=== PATIENT | female | born 1945 | race Caucasian/White ===

== ENCOUNTER 2024-02-05 11:46 | Inpatient (IN) | payer MEDICARE, OTHER, SELFPAY ==
[2024-02-05 09:24] VITALS: BMI 42.9
--- NOTE | 2024-02-05 09:31 | ED.GENMED ---
History of Present Illness
General
Chief Complaint: Breathing Problem
Time Seen by Provider: 02/05/24 09:22
History of Present Illness
History of Present Illness:
79-year-old female with history of COPD not on chronic oxygen presents to the emergency department for evaluation of shortness of breath developing on Monday. She notes symptoms seem to be worse when she goes to lie backward. She was started on
prednisone 20 mg by her medical research associate at the onset of symptoms and felt better yesterday however symptoms abruptly worsened again today. She denies any chest pain but does report some tightness to the right lower chest. No associated fevers,
chills, or night sweats. She notes that she recently traveled to [place] for a wedding, felt as though allergies were affecting her, her is also reporting a cough. She denies any leg swelling or calf cramping. She is not on anticoagulants.
Past History
Past History
ED Past Medical History: Hypercholesterolemia and Other (RBBB)
ED Past Surgical History: None
Social History
Tobacco: Non-smoker
Personal:
Living: with family
Review of Systems
Review of Systems
Allergies reviewed?: Yes
All Other Systems: ROS reviewed and negative except as documented in HPI and ROS
Phy Exam
Physical Exam
Physical Exam:
GEN: Well appearing, tachypneic, able to speak in full sentences
Eyes: PERRLA, EOMs intact, no scleral icterus
HENT: NCAT, oral mucosa moist, no JVD, no cervical adenopathy.
Lungs: Tachypneic with mild conversational dyspnea, right base crackles heard, no wheezes
Cardiac: Tachycardic, regular, no murmur
Abdomen: S, NT, ND, NABS, no masses or hepatosplenomegaly
Neuro: AO x 3
MSK: No gross deformity or ecchymosis. No edema. No digital clubbing
Skin: No rashes, petechiae. Normal color, no pallor or jaundice.
Psych: Calm, cooperative, proper hygiene
Scores
Heart Failure Risk
Heart Failure Risk Score: Not Applicable
Course
Orders/Labs/Results
Orders:
Orders
02/05/24 09:23
Electrocardiogram (*1) Urgent
Reason for Study: Shortness of Breath
EKG- Treatment ONCE
02/05/24 09:30
CR Chest Portable - 1 View Urgent
Comment:
Reason For Exam: SOB
Reason Study Needs to be Portable: Other
02/05/24 09:48
COVID-19 Antigen Urgent
Source: Nasal Swab
Complete Blood Count/With Diff Urgent
Comprehensive Metabolic Panel Urgent
D-Dimer Urgent
NT-proBNP Urgent
Troponin I Urgent
Influenza A+B Rapid Molecular Urgent
BHARAT Source: Nasal Swab
Specimen Description:
02/05/24 10:32
Azithromycin 500 mg/250 ml [Zithromax Infusion] 500 mg in 250 ml IV NOW
CefTRIAXone [Rocephin] 1,000 mg IV NOW STA
MethylPREDNISolone PF [Solu-Medrol Pf] 40 mg IV NOW STA
02/05/24 11:36
Admit/Transfer Patient As Directed
Co-Sign Provider:
Level of Care: Inpatient admission
Assign to:: Medical/Surgical
Physician / Group: hospitalist-Christina
Diagnosis: COPD/pna
Reason for Hospitalization: IV abx, IV steroids, pulm, echo
Expected length of stay greater than two midnights?: Yes
ELOS- Estimated Length of Stay in days: 4
I certify the patient meets the requirements for IP care: Yes
02/05/24 11:38
Code Status As Directed
Resuscitation Status: Full Code
Abnormal Lab Results
02/05/24
09:48
WBC 12.1 H 10^3/uL
(4.8-10.8)
MCHC 32.1 L g/dL
(33.0-37.0)
RDW 15.8 H %
(11.5-14.5)
Abs Immat Gran (auto) 0.1 H 10^3/uL
(0-0.05)
Absolute Neuts (auto) 6.7 H 10^3/uL
(1.4-6.5)
Absolute Lymphs (auto) 3.9 H 10^3/uL
(1.2-3.4)
Absolute Monos (auto) 1.3 H 10^3/uL
(0.1-0.6)
Monocytes % 10.9 H %
(1.7-9.3)
D-Dimer 0.51 H ug/mlFEU
(0.00-0.50)
Glucose 102 H mg/dl
(70-99)
02/05/24 09:48
02/05/24 09:48
Vital Signs
Initial and Last Documented VS:
Initial Vital Signs
Temp Pulse Resp Pulse Ox
97.3 F 111 24 95
02/05/24 09:25 02/05/24 09:25 02/05/24 09:25 02/05/24 09:25
Last Documented Vital Signs
Temp Pulse Resp Pulse Ox
97.3 F 111 24 95
02/05/24 09:25 02/05/24 09:25 02/05/24 09:25 02/05/24 09:42
MDM/Problems Addressed
MDM/Problems Addressed:
Patient has continued increased work of breathing and no wheezing to suggest this is entirely a COPD exacerbation. She has noted to have bilateral lateral basilar infiltrates, given her impaired lung function with COPD and borderline hypoxemia I
feel it is appropriate to admit this patient to the hospital for IV antibiotics and further management. Her D-dimer needs age-adjusted cut off thus no CT scan is obtained. Will admit to the hospitalist service, IV ceftriaxone and azithromycin
started
Comment
Comment:
EKG independently interpreted by me shows a sinus tachycardia at a rate of 105 with an incomplete left bundle branch block, LVH changes noted, no overt ST changes concerning for ischemia
*Critical Care Note
Total Time (30-74mins, 75-104mins- exclusive of procedures): Not Applicable
ED Attending Note
-
Portions of this chart may have been created with voice recognition software.� Occasional wrong word or��sound alike� substitutions may have occurred due to the inherent limitations of voice recognition software.
Discharge Plan
Departure
Patient Disposition: Admit
Date of Disposition: 02/05/24
Time of Disposition: 10:33
Presentation/result/management discussed w/ accepting MD/DO: Hospitalist
Discharge Problem:
Right lower lobe pneumonia
Interventions
Interventions:
*Risk Screen - Suicide Last Done: 02/05/24 09:25
*General Assessment Last Done: 02/05/24 09:25
*Neglect/Abuse Screening Last Done: 02/05/24 09:25
ED- Fall Risk Assessment Last Done: 02/05/24 11:49
*ED COVID-19 Vaccine History Last Done: 02/05/24 09:25
ED- Cardiac Assessment Last Done: 02/05/24 09:42
ED- Pulmonary Assessment Last Done: 02/05/24 09:42
[2024-02-05 09:59] LABS: % Basophils 0.3 % (0-2); % Eosinophils 0.7 % (0-6); % Immature Granulocytes 0.5 % (0-0.5); % Lymphocytes 32.4 % (20.5-51.1); % Monocytes 10.9 % (1.7-9.3); % Neutrophils 55.2 % (42.2-75.2); Absolute Eosinophils 0.1 10^3/uL (0-0.7); Absolute Immature Granulocytes 0.1 10^3/uL (0-0.05); Absolute Lymphocytes 3.9 10^3/uL (1.2-3.4); Absolute Monocytes 1.3 10^3/uL (0.1-0.6); Absolute Neutrophils 6.7 10^3/uL (1.4-6.5); Hematocrit 44.8 % (37.0-47.0); Hemoglobin 14.4 g/dL (12.0-16.0); Mean Corp Hgb Conc. 32.1 g/dL (33.0-37.0); Mean Corpuscular Hgb 29.9 pg (27.0-31.0); Mean Corpuscular Volume 92.9 fL (81.0-99.0); Mean Platelet Volume 9.4 fL (7.4-10.4); Nucleated Red Blood Cells % 0 %; Platelet Count 261 10^3/uL (130-400); Red Blood Cell Count 4.82 10^6/uL (4.20-5.40); Red Cell Dist. Width 15.8 % (11.5-14.5); White Blood Cell Count 12.1 10^3/uL (4.8-10.8)
[2024-02-05 10:13] LABS: ALT (SGPT) 24 U/L (0-35); AST (SGOT) 24 U/L (14-36); Albumin 4.4 g/dl (3.5-5.0); Alkaline Phosphatase 104 U/L (38-126); Blood Urea Nitrogen 14 mg/dl (7-17); Calcium 9.5 mg/dl (8.4-10.2); Carbon Dioxide 30 mmol/L (22-30); Chloride 104 mmol/L (98-107); Estimated Creatinine Clearance 89 ml/min; Glucose 102 mg/dl (70-99); Potassium 3.8 mmol/L (3.5-5.1); Sodium 143 mmol/L (135-145); Total Bilirubin 0.4 mg/dl (0.2-1.3); Total Protein 7.3 g/dl (6.3-8.2); eGFR > 60.00
[2024-02-05 10:15] LABS: COVID-19 Antigen Negative (Negative)
[2024-02-05 10:17] LABS: D-Dimer 0.51 ug/mlFEU (0.00-0.50)
[2024-02-05 10:23] LABS: NT-proBNP 127 pg/ml; Troponin I < 0.012 ng/ml
[2024-02-05] MEDS: SOLU-MEDROL PF 40 MG IV (11:14)
[2024-02-05] MEDS: ZITHROMAX INFUSION 250 IV (11:15)
[2024-02-05] MEDS: ROCEPHIN 1000 MG IV (11:15)
--- NOTE | 2024-02-05 11:42 | HPS.HSE ---
Family Physician
-
Family Physician: Saleem Hillman
Chief Complaint
-
SOB, cough
History of Present Illness
Patient is a 79-year-old female with a history of chronic obstructive pulmonary disease and mild asthma along with mild to moderate aortic stenosis who had her appointment at Dr. Tian's office last week and got a good report. Later that week on
Monday evening Feb 02 2024, patient developed acute onset of cough, shortness of breath and productive yellow-green phlegm. On Monday morning she continued to be short of breath and called Dr. Priscilla cisse who is on-call. He prescribed prednisone
20 mg daily for 7 days followed by 10 mg daily for 7 days. She thought she was doing better until this morning when she got up to move around and was again short of breath. She continues to have green productive phlegm. She denied fevers or
chills. She did use her rescue inhaler without any improvement. The patient has lost 20 pounds over the last 2 years as she is trying to lose weight. She denies any heart failure history or lower extremity edema. Patient states that the
shortness of breath is worse with moving around. She is due to see her exercise instructor in February and have an echocardiogram at that time. Workup in the emergency department finds her to have possible pneumonia on chest x-ray. Patient is being admitted.
Medical History
Past Medical History
Past Medical History: Reports Other
Additional Past Medical History:
Mild to moderate aortic stenosis
Chronic obstructive pulmonary disease with mild asthma
Chronic left bundle branch block
Coronary artery disease
Hyperlipidemia
Past Surgical History: Reports Other
Additional Past Surgical History:
Bilateral total knee replacements 2013, 2016
Social History
Tobacco: Former Smoker (Quit 32 years ago)
Alcohol: Occasional
Drug: None
Personal:
Living: With Family
Family History
Family History: Not pertinent
Allergies / Home Medications
Allergies reflects when Allergies were last updated in [facility].
Home Medications with original date entered in [facility]
Allergy/Medication List:
Allergies
Allergy/AdvReac Type Severity Reaction Status Date / Time
etodolac Allergy Unknown Hives Verified 05/23/20 15:57
Home Medications
albuterol sulfate 90 mcg/actuation aerosol inhaler (ProAir HFA) 2 puff inhalation R Q6HPRN PRN SOB 02/05/24
allopurinol 300 mg tablet 300 mg PO QPM Gout 02/05/24
biotin 5 mg tablet 5 mg PO DAILY Supplement 02/05/24
budesonide 160 mcg-glycopyr 9 mcg-formot 4.8 mcg/actuation HFA inhaler (Breztri Aerosphere) 2 inh inhalation R BID Lung/Breathing Issues 02/05/24
cetirizine 10 mg tablet (Zyrtec) 10 mg PO HS Allergies 02/05/24
cholecalciferol (vitamin D3) 25 mcg (1,000 unit) tablet (Vitamin D3) 25 mcg PO DAILY Supplement 02/05/24
famotidine 20 mg tablet (Pepcid) 20 mg PO DAILYPRN PRN GERD 02/05/24
pravastatin 40 mg tablet 40 mg PO HS High Cholesterol 02/05/24
prednisone 10 mg tablet 20 mg PO DIRECTED Anti-Inflammatory 02/05/24
therapeutic multivitamin 1 tab PO DAILY Supplement 02/05/24
Review of Systems
-
History Source: Patient
A 12 point ROS was completed and negative except as noted: Yes
Constitutional: Denies Fever or Chills
EENT: Denies Sore Throat or Runny Nose
Respiratory: Reports Cough and Trouble Breathing
Cardiac: Denies Chest Pain
Abdomen/GI: Denies Abdominal Pain, Nausea, Vomiting, Diarrhea or Constipated
: Denies Dysuria
Musculoskeletal: Reports No Symptoms; Denies Edema
Skin: Reports No Symptoms
Neurological: Reports Other (Lightheaded with starting the prednisone)
Endocrine: Reports No Symptoms
Hematologic/Lymphatic: Reports No Symptoms
Psych: Reports No Symptoms
Physical Exam
Vital Signs
Vital Signs
Temp Pulse Resp Pulse Ox
97.3 F 111 24 95
02/05/24 09:25 02/05/24 09:25 02/05/24 09:25 02/05/24 09:42
Physical Exam
General: Well Developed, Well Nourished, Respiratory Distress (Mildly winded with speaking) and Obese
HEENT: NormoCephalic and Anicteric; No Oxygen
Respiratory: Decreased Breath Sounds; No Wheezes or Rhonchi
Cardiac: S1/S2, Regular Rhythm and Murmur
GI: Soft, Non Tender, Non Distended and Normal Bowel Sounds
Musculoskeletal: No Clubbing, No Cyanosis and No Edema
Skin: Warm, Dry and Other (Large amount of moles on her back)
Neuro: Awake and Alert
Psych: Calm
Laboratory Results
-
02/05/24 09:48
02/05/24 09:48
Laboratory Results
Total Bilirubin 0.4 mg/dl (0.2-1.3) 02/05/24 09:48
AST 24 U/L (14-36) 02/05/24 09:48
ALT 24 U/L (0-35) 02/05/24 09:48
Alkaline Phosphatase 104 U/L (38-126) 02/05/24 09:48
Troponin I < 0.012 ng/ml 02/05/24 09:48
Impression/Plan
-
Patient is a 79-year-old female
Acute chronic obstructive pulmonary disease exacerbation likely--suspect due to mild/early pneumonia versus allergy triggers--patient did not improve on low-dose oral prednisone--ADMIT-consult pulmonary--continue Rocephin and oral
Zithromax--continue IV steroids and nebulizer--check echocardiogram for completeness
Mild to moderate aortic stenosis--patient due to see Dr. Oh in February--will check echo now
Hyperlipidemia--continue pravastatin
Gout--continue allopurinol
Allergies--continue Zyrtec
Chronic left bundle branch block
DVT prophylaxis
CODE STATUS--full code
[2024-02-05 13:20] VITALS: BP 149/93
[2024-02-05 13:39] VITALS: BP 177/86; BMI 42.0
--- NOTE | 2024-02-05 13:50 | CON.PUL ---
Consultation
Consultation Request
Date/Time Consultation Requested: 02/05/24
Date/Time Consultation Performed: 02/05/24
Performing Provider: Vishnu
Reason for Consultation: SOB
Medical History
-
History of Present Illness:
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 She notes that she had developed symptoms on 02/02/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 Se had been improving on her taper and suddenly developed acute onset SOB when lying down that was recurrent. She felt her throat was closing. She is not known to be on home O2,
placed on this.
Recent outpatient records indicating PFT on 01/30/24 showing severe obstruction. She had had chronic SOB felt to be related to her BMI/deconditioning. She is on Breztri inhaler.
CXR showing possible R basilar disease. No prior CXR for review. Had CT AP in past where lung bases were clear.
She has a history of severe AIDEN with AHI 80 diagnosed >10 years ago and could not tolerate CPAP.
Past Medical History
Past Medical History: Other (see list below)
Social History
Tobacco: Former Smoker
Alcohol: None
Drug: None
Family History
Family History: Reviewed & Not Pertinent
Allergies / Home Medications
Allergies
Allergy/AdvReac Type Severity Reaction Status Date / Time
etodolac Allergy Unknown Hives Verified 05/23/20 15:57
Home Medications
�Medication �Instructions �Recorded �Confirmed �Last Taken �Type
albuterol sulfate 90 mcg/actuation 2 puff inhalation R Q6HPRN PRN SOB 02/05/24 02/05/24 Unknown History
aerosol inhaler (ProAir HFA)
allopurinol 300 mg tablet 300 mg PO QPM Gout 02/05/24 02/05/24 02/04/24 History
biotin 5 mg tablet 5 mg PO DAILY Supplement 02/05/24 02/05/24 02/04/24 History
budesonide 160 mcg-glycopyr 9 2 inh inhalation R BID 02/05/24 02/05/24 Unknown History
mcg-formot 4.8 mcg/actuation HFA Lung/Breathing Issues
inhaler (Breztri Aerosphere)
cetirizine 10 mg tablet (Zyrtec) 10 mg PO HS Allergies 02/05/24 02/05/24 02/04/24 History
cholecalciferol (vitamin D3) 25 25 mcg PO DAILY Supplement 02/05/24 02/05/24 02/04/24 History
mcg (1,000 unit) tablet (Vitamin
D3)
famotidine 20 mg tablet (Pepcid) 20 mg PO DAILYPRN PRN GERD 02/05/24 02/05/24 02/05/24 History
pravastatin 40 mg tablet 40 mg PO HS High Cholesterol 02/05/24 02/05/24 02/04/24 History
prednisone 10 mg tablet 20 mg PO DIRECTED 02/05/24 02/05/24 02/04/24 History
Anti-Inflammatory 20 MG
therapeutic multivitamin 1 tab PO DAILY Supplement 02/05/24 02/05/24 02/04/24 History
Review of Systems
-
History Source: Patient
All other systems: Negative unless noted
Vitals / Labs / Diagnostic Testing
Vital Signs
Temp Pulse Resp BP Pulse Ox
99.2 F 93 20 177/86 96
02/05/24 13:39 02/05/24 13:39 02/05/24 13:39 02/05/24 13:39 02/05/24 13:39
Lab Data
02/05/24 09:48
02/05/24 09:48
Microbiology
02/05/24 09:48 Nasal Swab Influenza Types A & B (FLACA) - Final
Negative for Influenza A & B, NAAT
Negative results must be combined with clinical observations
and patient history.
Nucleic Acid Amplification test (NAAT)performed on the
[employer] platform.
Diagnostic Testing:
Physical Exam
-
HEENT: Normocephalic, Anicteric and Moist Mucous Membranes
Cardiovascular: S1/S2 and Regular Rhythm
Respiratory: Clear and Non-Labored Respirations
GI: Soft, Non Distended and Non Tender
Neurology: Awake, Alert, Oriented, AO x 3 and No Motor Deficits
Skin: Warm, Dry and Good Color
General: Comfortable and Other (NAD)
Assessment
-
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 She notes that she had developed symptoms on 02/02/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 Se had been improving on her taper and suddenly developed acute onset SOB when lying down that was recurrent. She felt her throat was closing. She is not known to be on home O2,
placed on this. CXR showing possible R basilar disease. We are consulted for eval.
Acute hypoxic respiratory failure
Acute onset SOB
Possible PNA
AE COPD suspected
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
Gout
Hypercholesteremia
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
Fibromyalgia
Asthma/COPD
Follows with michelle RIZVI
PFT with severe airflow obstruction/Severe diffusion impairment
Tonsillectomy
Laparotomy with BTL
Breast bx - benign
LPS Cholecystectomy - 2003
RT Arthroscopy knee
Knee replacement - bilateral
Bi-lateral cataract - removal/lens implants 2021
History of PNA, Hosp @ [facility] 2003
ER DH: Back pain 04/28/2023
Former smoker, quit smoking in 1992. [id number] history noted.
Morbid obesity BMI 42
Plan
She is placed on 3L O2 on admission
No oxygen was needed at home, no history of home use
Prior history of lung disease is noted including ACOS
Recent outpatient records indicating PFT on 01/30/24 showing severe obstruction.
She had had chronic SOB felt to be related to her BMI/deconditioning. She is on Breztri inhaler.
She has a history of severe AIDEN with AHI 80 diagnosed >10 years ago and could not tolerate CPAP.
Suspect patient has underlying AECOPD, possible PNA
CXR obtained indicating bibasilar haziness, no comparative CXR in past
Other imaging reviewed--CT AP clear bases in [address] PE study given her risks and acute onset of symptoms
ECHO results reviewed in past
proBNP neg on arrival
Trend trops/follow telemetry
AIDEN-severe
We discussed this and her history of noncompliance
Obtain baseline ABG
Will need outpatient pulmonary evaluation in our office for PFTs and 6MWT
Reviewed with patient
Risk factors assessed for underlying sleep disordered breathing also noted, recommend outpatient PSG/sleep evaluation
Weight loss measures recommended
Obesity contributing to respiratory symptoms
We will follow
Diagnostic Data
CXR 02/05/24:
1. Mild interstitial prominence and cephalization of the pulmonary vasculature, suggestive of mild pulmonary edema. Mild cardiac enlargement.
2. Haziness of each hemidiaphragm, left greater than right. Findings may represent small pleural effusions and/or bibasilar airspace disease.
CT AP 04/28/23- lung bases clear/very mild chronic interstitial changes
ECHO 01/16/23: Normal left ventricular chamber size. Normal left ventricular systolic function. Normal regional wall motion. Mild concentric left ventricular hypertrophy. Left ventricular ejection fraction is 60-65%. Mild to moderate aortic stenosis
with peak/mean gradients across the aortic valve are 24/15mmHg. aortic valve area 1.3cm2. No prior study available for comparison.
Spirometry 01/30/24: FEV1 1.03L 40%, FVC 1.82L 64%, ratio 56
-
Total time spent on this: 75mins which includes review of prior visits, outpatient records/testing.
--- NOTE | 2024-02-05 14:42 | PTCARENOTE ---
Received patient from ED via stretcher. AAOx3, ambulated to bed without assistance. Assessed and oriented to room. at bedside. Call hammond in close reach.
[2024-02-05] MEDS: VENTOLIN NEBULES INH (15:28)
[2024-02-05 17:15] LABS: B.E. -0.4 mmol/L; HCO3 23.1 mmol/L (21-28); O2 Saturation % 99.9 % (94-98); PCO2 34 mmHg (32-35); PO2 146 mmHg (83-108); pH 7.44 (7.35-7.45)
[2024-02-05] MEDS: ZYLOPRIM 300 MG PO (18:27)
[2024-02-05] MEDS: LOVENOX 40 MG SC (18:27)
[2024-02-05] MEDS: VENTOLIN NEBULES 2.5 MG INH (19:39)
[2024-02-05] MEDS: SYMBICORT 160/4.5 MCG INHALER 2 PUFF INH (19:39)
[2024-02-05] MEDS: MUCINEX 1200 MG PO (20:02)
[2024-02-05] MEDS: DECADRON 4 MG IV (20:02)
[2024-02-05] MEDS: TYLENOL 650 MG PO (22:32)
[2024-02-05] MEDS: PRAVACHOL 40 MG PO (22:33)
[2024-02-05] MEDS: ZYRTEC 10 MG PO (22:33)
[2024-02-05 23:00] VITALS: BP 151/81
[2024-02-06] MEDS: DECADRON 4 MG IV ×3 (05:34→20:56)
[2024-02-06] MEDS: VENTOLIN NEBULES 2.5 MG INH ×4 (07:28→19:52)
[2024-02-06] MEDS: SPIRIVA RESPIMAT 2.5 MCG 2 PUFF INH (07:29)
[2024-02-06 07:30] VITALS: BP 132/76
[2024-02-06] MEDS: SYMBICORT 160/4.5 MCG INHALER 2 PUFF INH ×2 (07:30→19:52)
[2024-02-06 07:52] LABS: % Basophils 0.1 % (0-2); % Immature Granulocytes 0.3 % (0-0.5); % Lymphocytes 11.8 % (20.5-51.1); % Monocytes 5.3 % (1.7-9.3); % Neutrophils 82.5 % (42.2-75.2); Absolute Lymphocytes 1.2 10^3/uL (1.2-3.4); Absolute Monocytes 0.5 10^3/uL (0.1-0.6); Absolute Neutrophils 8.5 10^3/uL (1.4-6.5); Hematocrit 43.8 % (37.0-47.0); Hemoglobin 14.1 g/dL (12.0-16.0); Mean Corp Hgb Conc. 32.2 g/dL (33.0-37.0); Mean Corpuscular Hgb 30.1 pg (27.0-31.0); Mean Corpuscular Volume 93.4 fL (81.0-99.0); Mean Platelet Volume 9.3 fL (7.4-10.4); Nucleated Red Blood Cells % 0 %; Platelet Count 244 10^3/uL (130-400); Red Blood Cell Count 4.69 10^6/uL (4.20-5.40); Red Cell Dist. Width 15.8 % (11.5-14.5); White Blood Cell Count 10.3 10^3/uL (4.8-10.8)
[2024-02-06] MEDS: ZITHROMAX 250 MG PO (08:19)
[2024-02-06] MEDS: THERAGRAN 1 TABLET PO (08:19)
[2024-02-06] MEDS: VITAMIN D3 (cholecalciferol) 25 MCG PO (08:19)
[2024-02-06] MEDS: MUCINEX 1200 MG PO ×2 (08:19→20:56)
[2024-02-06 10:09] LABS: Blood Urea Nitrogen 22 mg/dl (7-17); Calcium 9.9 mg/dl (8.4-10.2); Carbon Dioxide 28 mmol/L (22-30); Chloride 104 mmol/L (98-107); Estimated Creatinine Clearance 103 ml/min; Glucose 170 mg/dl (70-99); Potassium 4.3 mmol/L (3.5-5.1); Sodium 142 mmol/L (135-145); eGFR > 60.00
--- NOTE | 2024-02-06 11:00 | W.PN.HOSP.TC ---
Today's Communication/Plan
-
see plan
Assessment / Plan
Assessment / Plan
CHEST CT
IMPRESSION:
1. No evidence of pulmonary embolism.
2. No significant acute abnormality identified in the chest, as described above.
3. Heterogeneous thyroid gland with underlying nodules. Consider outpatient workup with dedicated thyroid ultrasound if not previously performed.
Acute chronic obstructive pulmonary disease exacerbation likely--suspect due to mild/early pneumonia versus allergy triggers--patient did not improve on low-dose oral prednisone-
-admitted to medicine
-appreciate pulmonary
-continue Rocephin and oral Zithromax
continue IV steroids and nebulizer
-acapella
Abnl Thyroid on imaging
-needs outpatient US
Mild to moderate aortic stenosis--patient due to see Dr. Oh in February--
-PER ECHO: essentially stable
aortic valve stenosis with prior study demonstrating peak and mean gradients of
24 and 15 mmHg and calculated aortic valve area of 1.3 cm2
Hyperlipidemia--continue pravastatin
Gout--continue allopurinol
Allergies--continue Zyrtec
Chronic left bundle branch block
DVT prophylaxis
CODE STATUS--full code
Anticipated Discharge: 24 - 48 hours
Subjective/Interval History
-
Date of Service: February 06, 2024
continues to feel short of breath
no chest pain
Objective Data
-
Labs:
Laboratory Results
02/06/24 02/06/24
07:31 09:26
WBC 10.3
Hgb 14.1
Hct 43.8
Plt Count 244
Sodium Cancelled 142
Potassium Cancelled 4.3
Chloride Cancelled 104
Carbon Dioxide Cancelled 28
BUN Cancelled 22 H
Creatinine Cancelled 0.6
Glucose Cancelled 170 H
Calcium Cancelled 9.9
Vital Signs:
Vital Signs
Temp Pulse Resp BP Pulse Ox
98.5 F 77 20 132/76 96
02/06/24 07:30 02/06/24 08:31 02/06/24 08:31 02/06/24 07:30 02/06/24 08:31
Review of Systems
-
History Source: Patient
All other systems: Reviewed and negative
Physical Exam
-
General: No Apparent Distress
HEENT: PERRLA
Respiratory: Decreased Breath Sounds
Cardiac: Regular Rhythm and S1/S2
GI: Soft and Nontender
Musculoskeletal: No Edema
Skin: Warm and Dry; Negative Rash
Neuro: AO x 3
Psych: Calm
Data Reviewed
-
Diagnostic Radiology: Report Reviewed by me
Labs: Labs Reviewed by me
--- NOTE | 2024-02-06 11:19 | W.PN.PUL3 ---
Today's Communication / Plan
-
CT PE negative, ABG adequate
Home O2 eval
CHUN likely multifactorial given severe COPD, untreated AIDEN, morbid obesity, deconditioning
We discussed outpatient pulmonary rehab would be most beneficial
She is already on max inhaler therapy
CPAP trial tonight, we discussed AIDEN treatment at length
Outpatient pulmonary FU recommended
Discharge planning per team
Assessment
-
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 She notes that she had developed symptoms on 02/02/[address] Barboza personnel consultant and was given prednisone course to try. Se had been improving on her taper and suddenly developed acute onset SOB when lying down that was recurrent. She felt her throat was closing. She is not known to be on home O2,
placed on this. CXR showing possible R basilar disease. We are consulted for eval.
Acute hypoxic respiratory failure
Acute onset SOB
Possible PNA
AE COPD suspected
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
Gout
Hypercholesteremia
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
Fibromyalgia
Asthma/COPD
Follows with michelle RIZVI
PFT with severe airflow obstruction/Severe diffusion impairment
Tonsillectomy
Laparotomy with BTL
Breast bx - benign
LPS Cholecystectomy - 2003
RT Arthroscopy knee
Knee replacement - bilateral
Bi-lateral cataract - removal/lens implants 2021
History of PNA, Hosp @ [facility] 2003
ER DH: Back pain 04/28/2023
Former smoker, quit smoking in 1992. [id number] history noted.
Morbid obesity BMI 42
Plan
She is placed on 3L O2 on admission
No oxygen was needed at home, no history of home use
Home O2 eval
Prior history of lung disease is noted including ACOS
Recent outpatient records indicating PFT on 01/30/24 showing severe obstruction.
She had had chronic SOB felt to be related to her BMI/deconditioning. She is on Breztri inhaler.
She has a history of severe AIDEN with AHI 80 diagnosed >10 years ago and could not tolerate CPAP.
Suspect patient has underlying AECOPD, possible PNA
CXR obtained indicating bibasilar haziness, no comparative CXR in past
Other imaging reviewed--CT AP clear bases in 2022
CT PE study neg
ECHO results reviewed in past
proBNP neg on arrival
Trend trops/follow telemetry
AIDEN-severe
We discussed this and her history of noncompliance
Obtain baseline ABG--this was adequate
CPAP trial tonight
Will need outpatient pulmonary evaluation in our office for PFTs and 6MWT
Reviewed with patient
Risk factors assessed for underlying sleep disordered breathing also noted, recommend outpatient PSG/sleep evaluation
She would be a good candidate for pulmonary rehab
Weight loss measures recommended
Obesity contributing to respiratory symptoms
Discharge planning per team
Diagnostic Data
CXR 02/05/24:
1. Mild interstitial prominence and cephalization of the pulmonary vasculature, suggestive of mild pulmonary edema. Mild cardiac enlargement.
2. Haziness of each hemidiaphragm, left greater than right. Findings may represent small pleural effusions and/or bibasilar airspace disease.
CT AP 04/28/23- lung bases clear/very mild chronic interstitial changes
ECHO 01/16/23: Normal left ventricular chamber size. Normal left ventricular systolic function. Normal regional wall motion. Mild concentric left ventricular hypertrophy. Left ventricular ejection fraction is 60-65%. Mild to moderate aortic stenosis
with peak/mean gradients across the aortic valve are 24/15mmHg. aortic valve area 1.3cm2. No prior study available for comparison.
Spirometry 01/30/24: FEV1 1.03L 40%, FVC 1.82L 64%, ratio 56
Total time spent on this includes review of prior visits, outpatient records/testing.
Subjective Data
-
Date of Service:
Date of Service: February 06, 2024
Chief Complaint: Pulmonary Follow Up
Subjective:
no new events ON
still remains dyspneic with little activity
Objective Data
Data Reviewed
Vital Signs / I&O / Oxygen:
Vital Signs
Temp Pulse Resp BP Pulse Ox
98.5 F 77 20 132/76 96
02/06/24 07:30 02/06/24 08:31 02/06/24 08:31 02/06/24 07:30 02/06/24 08:31
SaO2 96
Nasal Cannula flow liters per 3
minute
Physical Exam
General: Comfortable and Other (NAD)
HEENT: Normocephalic, Anicteric and Moist Mucous Membranes
Cardiovascular: S1-S2 and Regular Rhythm
Respiratory: Clear and Non-Labored Respirations
GI: Soft, Non Distended and Non Tender
Neurology: Awake, Alert, Oriented, AO x 3 and No Motor Deficits
Skin: Warm, Dry and Good Color
Labs/Micro/Reports
Lab Data
02/06/24 07:31
02/06/24 09:26
Laboratory Results
02/05/24
16:59
pH 7.44
pCO2 34
pO2 146 H
HCO3 23.1
O2 Delivery Level
Microbiology
02/05/24 17:11 Sputum Respiratory Culture - Final
02/05/24 17:11 Sputum Gram Stain - Final
02/05/24 09:48 Nasal Swab Influenza Types A & B (FLACA) - Final
Negative for Influenza A & B, NAAT
Negative results must be combined with clinical observations
and patient history.
Nucleic Acid Amplification test (NAAT)performed on the
[employer] platform.
--- NOTE | 2024-02-06 11:52 | CM ---
configuration manager reviewed patient's chart and met with patient and patient lives with her spouse in a 2 story condo, with elevator, patient has everything on the 1st floor per patient, patient drives, per patient she did not require oxygen prior to
admission. patient has a prescription plan and uses [facility] pharmacy.
PCP: Dr. Hillman
Plan; Home when stable, gearcase assembler will follow for any oxygen needs at discharge.
[2024-02-06] MEDS: ROCEPHIN 1000 MG IV (12:39)
[2024-02-06] MEDS: STERILE WATER FOR INJECTION 10 ML IV (12:39)
--- NOTE | 2024-02-06 13:37 | PN.CDI ---
CDI
- -
CDI:
Physician Documentation Request
Admit Date: 02/05/24 11:46
Dear Doctor Gisella,
Patient admitted with acute chronic obstructive pulmonary disease exacerbation.
02/04 Pulmonary consult, 'Possible PNA.'
02/05 PN, ...'suspect due to mild/early pneumonia versus allergy triggers....continue Rocephin and oral Zithromax.'
On admission, WBC 12.1 and HR> 90.
Please clarify which of the following most accurately describes the status of the patient's infection:
Sepsis, POA
Pneumonia only
Other
Sepsis
- Systemic manifestations of infection, with 2 or more SIRS criteria which include:
- Fever >100.4 degrees F or hypothermia < 96.8 degrees F
- Leukocytosis - WBC > 12,000 or leukopenia - WBC < 4,000 or > 10% bands
- Tachycardia > 90 beats per minute
- Tachypnea - RR > 20 breaths per minute or PaCO2 , 32mmHg
Source: Merck Manual 2013
- Indicate the known or suspected organism
- Indicate the known or suspected underlying infection, such as pneumonia
- Indicate if a suspected bacterial infection of unknown source
Localized Infection Only, Without Systemic Illness
- indicate the site/source, such as pneumonia
Other
Unable to Determine
Use of terms such as suspected, likely, concern for, or probable (associated with a specific diagnosis that is being evaluated, monitored, or treated as if it exists) are acceptable and can be coded in the inpatient setting, when documented at the
time of discharge.
Thank you,
Maria Teresa ESPANA,RN,CCDS
CDI Specialist
Available via [place] text
Please use your independent medical judgment in providing your response.
--- NOTE | 2024-02-06 14:04 | PN.CDI ---
CDI
- -
CDI:
Physician Documentation Request
Admit Date: 02/05/24 11:46
Dear Doctor Gisella,
Please review the following and provide your response in the progress notes.
Clinical Indicators:
Height: 5' 6'
Weight: 260 lb 2 oz
BMI: 42.0
Please provide an associated diagnosis related to the abnormal BMI, such as:
Morbid obesity
Obesity
BMI is not significant
Other
BMI > or = to 40
Overweight
Obesity:
Due to excess calories
Drug induced
Due to other cause
Severe or morbid obesity:
With alveolar hypoventilation (Obesity hypoventilation syndrome)
Without alveolar hypoventilation
Use of terms such as suspected, likely, concern for, or probable (associated with a specific diagnosis that is being evaluated, monitored, or treated as if it exists) are acceptable and can be coded in the inpatient setting, when documented at the
time of discharge.
Thank you,
Maria Teresa ESPANA,RN,CCDS
CDI Specialist
Available via [place] text
Please use your independent medical judgment in providing your response.
[2024-02-06 15:30] VITALS: BP 142/79
[2024-02-06] MEDS: ZYLOPRIM 300 MG PO (17:15)
[2024-02-06] MEDS: LOVENOX 40 MG SC (17:15)
[2024-02-06] MEDS: TYLENOL 650 MG PO (21:40)
[2024-02-06] MEDS: PRAVACHOL 40 MG PO (23:28)
[2024-02-06] MEDS: ZYRTEC 10 MG PO (23:29)
[2024-02-06 23:48] VITALS: BP 145/86
--- NOTE | 2024-02-07 02:40 | PTCARENOTE ---
pt took bipap off @ 0230. pt ambulated to bathroom and became dyspneic and tachypneic. pulse ox 80%. 3lnc applied. pulse ox increased to 94%. Pt's work of breathing decreased and pt was able to fall back asleep comfortably.
--- NOTE | 2024-02-07 03:54 | DOWNTIME ---
There was a [employer] Client Telephone Interceptor Operator Downtime on 02/06/2024 from 0100 to 02/07/2024 at 0300. Downtime documentation of patient's care, including medication administrations, has been reconciled in the electronic record per guidelines. Refer to the
patient's paper chart under the miscellaneous tab to see printed paper medication records and downtime forms.
[2024-02-07] MEDS: DECADRON 4 MG IV ×2 (04:09→12:32)
[2024-02-07 07:00] VITALS: BP 163/91
[2024-02-07] MEDS: VITAMIN D3 (cholecalciferol) 25 MCG PO (07:55)
[2024-02-07] MEDS: THERAGRAN 1 TABLET PO (07:55)
[2024-02-07] MEDS: ZITHROMAX 250 MG PO (07:55)
[2024-02-07] MEDS: MUCINEX 1200 MG PO ×2 (07:55→19:48)
[2024-02-07] MEDS: VENTOLIN NEBULES 2.5 MG INH ×4 (08:00→21:01)
[2024-02-07] MEDS: SPIRIVA RESPIMAT 2.5 MCG 2 PUFF INH (08:00)
[2024-02-07] MEDS: SYMBICORT 160/4.5 MCG INHALER 2 PUFF INH ×2 (08:00→21:00)
--- NOTE | 2024-02-07 12:17 | W.PN.HOSP.TC ---
Addendum entered and electronically signed by Marlee Obando MD 02/07/24 13:04:
sepsis 2/2 bronchitis POA
-treatment as below
obesity 2/2 excess calories
advise weight loss
Original Note:
Today's Communication/Plan
-
see plan
Assessment / Plan
Assessment / Plan
CHEST CT
IMPRESSION:
1. No evidence of pulmonary embolism.
2. No significant acute abnormality identified in the chest, as described above.
3. Heterogeneous thyroid gland with underlying nodules. Consider outpatient workup with dedicated thyroid ultrasound if not previously performed.
Acute chronic obstructive pulmonary disease exacerbation likely--suspect due to mild/early pneumonia versus allergy triggers--patient did not improve on low-dose oral prednisone-
-admitted to medicine
-appreciate pulmonary
-continue Rocephin and oral Zithromax (day 3)
continue IV steroids and nebulizer
-acapella
Abnl Thyroid on imaging
-needs outpatient US
Hyperglycemia on steroids
-add on A1c
-ISS while inpatient on steroids
Mild to moderate aortic stenosis--patient due to see Dr. Oh in February--
-PER ECHO: essentially stable
aortic valve stenosis with prior study demonstrating peak and mean gradients of
24 and 15 mmHg and calculated aortic valve area of 1.3 cm2
Hyperlipidemia--continue pravastatin
Gout--continue allopurinol
Allergies--continue Zyrtec
Chronic left bundle branch block
DVT prophylaxis Lovenox subQ
CODE STATUS--full code
Anticipated Discharge: 24 - 48 hours
Subjective/Interval History
-
Date of Service: February 07, 2024
continues to feel breathing not at baseline
difficulty with beeping from CPAP
Objective Data
-
Vital Signs:
Vital Signs
Temp Pulse Resp BP Pulse Ox
98.5 F 102 18 163/91 93
02/07/24 07:00 02/07/24 11:21 02/07/24 11:21 02/07/24 07:00 02/07/24 11:21
I&O
02/06/24 02/07/24 02/08/24
06:59 06:59 06:59
Intake Total 900 / 900
Balance 900 / 900
Review of Systems
-
History Source: Patient
All other systems: Reviewed and negative
Physical Exam
-
General: No Apparent Distress
HEENT: PERRLA
Respiratory: Decreased Breath Sounds
Cardiac: Regular Rhythm and S1/S2
GI: Soft and Nontender
Musculoskeletal: No Edema
Skin: Warm and Dry; Negative Rash
Neuro: AO x 3
Psych: Calm
Data Reviewed
-
Diagnostic Radiology: Report Reviewed by me
Labs: Labs Reviewed by me
[2024-02-07] MEDS: ROCEPHIN 1000 MG IV (12:31)
[2024-02-07] MEDS: STERILE WATER FOR INJECTION 10 ML IV (12:32)
--- NOTE | 2024-02-07 12:46 | W.PN.PUL3 ---
Addendum entered and electronically signed by Paola Mares DO 02/07/24 13:41:
I reviewed plan of care with patient extensively, nothing further to add
We will sign off at this time, please call with questions
Original Note:
Today's Communication / Plan
-
Home O2 eval showing need for 2L at rest, 3L with exertion, can arrange home O2 set up
PT eval for SNF placement, she is fearful of going home
Transition IV steroids to PO taper, can continue at home
Continue CPAP while inpatient
Outpatient pulm/sleep FU arranged
Discharge planning per team
Assessment
-
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 She notes that she had developed symptoms on 02/02/[address] Barboza commercial litigation associate and was given prednisone course to try. Se had been improving on her taper and suddenly developed acute onset SOB when lying down that was recurrent. She felt her throat was closing. She is not known to be on home O2,
placed on this. CXR showing possible R basilar disease. We are consulted for eval.
Acute hypoxic respiratory failure
Acute onset SOB
Possible PNA
AE COPD suspected
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
Gout
Hypercholesteremia
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
Fibromyalgia
Asthma/COPD
Follows with michelle RIZVI
PFT with severe airflow obstruction/Severe diffusion impairment
Tonsillectomy
Laparotomy with BTL
Breast bx - benign
LPS Cholecystectomy - 2003
RT Arthroscopy knee
Knee replacement - bilateral
Bi-lateral cataract - removal/lens implants 2021
History of PNA, Hosp @ [facility] 2003
ER DH: Back pain 04/28/2023
Former smoker, quit smoking in 1992. [id number] history noted.
Morbid obesity BMI 42
Plan
She is placed on 3L O2 on admission, currently weaned to 2L satting 93%
No oxygen was needed at home, no history of home use
Home O2 eval--3L needed with exertion/arrange home O2 set up
Prior history of lung disease is noted including ACOS
Recent outpatient records indicating PFT on 01/30/24 showing severe obstruction.
She had had chronic SOB felt to be related to her BMI/deconditioning. She is on Breztri inhaler.
She has a history of severe AIDEN with AHI 80 diagnosed >10 years ago and could not tolerate CPAP.
Suspect patient has underlying AECOPD, possible PNA
IV steroids, will transition to PO taper
CXR obtained indicating bibasilar haziness, no comparative CXR in past
Other imaging reviewed--CT AP clear bases in 2022
CT PE study neg
ECHO results reviewed in past
proBNP neg on arrival
Trend trops/follow telemetry
AIDEN-severe
We discussed this and her history of noncompliance
Obtain baseline ABG--this was adequate
CPAP trials ongoing, we discussed retesting as OP for new set up
Will need outpatient pulmonary evaluation in our office for PFTs and 6MWT
Reviewed with patient
Risk factors assessed for underlying sleep disordered breathing also noted, recommend outpatient PSG/sleep evaluation
She would be a good candidate for pulmonary rehab
Weight loss measures recommended
Obesity contributing to respiratory symptoms
Discharge planning per team
She does not wish to leave despite my suggestions of further OP management--she is fearful of going home
Can obtain PT eval for SNF Eval
Diagnostic Data
CXR 02/05/24:
1. Mild interstitial prominence and cephalization of the pulmonary vasculature, suggestive of mild pulmonary edema. Mild cardiac enlargement.
2. Haziness of each hemidiaphragm, left greater than right. Findings may represent small pleural effusions and/or bibasilar airspace disease.
CT AP 8/4/23- lung bases clear/very mild chronic interstitial changes
ECHO 01/16/23: Normal left ventricular chamber size. Normal left ventricular systolic function. Normal regional wall motion. Mild concentric left ventricular hypertrophy. Left ventricular ejection fraction is 60-65%. Mild to moderate aortic stenosis
with peak/mean gradients across the aortic valve are 24/15mmHg. aortic valve area 1.3cm2. No prior study available for comparison.
Spirometry 01/30/24: FEV1 1.03L 40%, FVC 1.82L 64%, ratio 56
Total time spent on this includes review of prior visits, outpatient records/testing.
Subjective Data
-
Date of Service:
Date of Service: February 07, 2024
Chief Complaint: Pulmonary Follow Up
Subjective:
no acute events ON
reports that she was able to tolerate CPAP until 3am
remains on 3L NC
Objective Data
Data Reviewed
Vital Signs / I&O / Oxygen:
Vital Signs
Temp Pulse Resp BP Pulse Ox
98.5 F 102 18 163/91 93
02/07/24 07:00 02/07/24 11:21 02/07/24 11:21 02/07/24 07:00 02/07/24 11:21
Intake and Output
02/06/24 02/07/24 02/08/24
06:59 06:59 06:59
Intake Total 900 / 900
Balance 900 / 900
SaO2 93
Nasal Cannula flow liters per 2
minute
Physical Exam
General: Comfortable and Other (NAD)
HEENT: Normocephalic, Anicteric and Moist Mucous Membranes
Cardiovascular: S1-S2 and Regular Rhythm
Respiratory: Clear, Non-Labored Respirations and Other (decreased overall BS)
GI: Soft, Non Distended and Non Tender
Neurology: Awake, Alert, Oriented, AO x 3 and No Motor Deficits
Skin: Warm, Dry and Good Color
Labs/Micro/Reports
Lab Data
02/06/24 07:31
02/06/24 09:26
Microbiology
02/05/24 17:11 Sputum Respiratory Culture - Final
02/05/24 17:11 Sputum Gram Stain - Final
02/05/24 09:48 Nasal Swab Influenza Types A & B (FLACA) - Final
Negative for Influenza A & B, NAAT
Negative results must be combined with clinical observations
and patient history.
Nucleic Acid Amplification test (NAAT)performed on the
[employer] platform.
--- NOTE | 2024-02-07 13:49 | CM ---
Chart reviewed and plan is for patient to return to home when stable, home oxygen completed and patient will require oxygen at discharge, foster care case manager reviewed oxygen companies and referral sent to [employer] for home oxygen.
Plan; Home with home oxygen at discharge.
[2024-02-07 14:34] LABS: Glycohemoglobin (HgbA1c) 6.2 % (4.0-5.6)
[2024-02-07 15:34] VITALS: BP 162/113; PULSE 103; O2SAT 93
[2024-02-07 16:00] VITALS: BP 147/73
[2024-02-07 17:06] LABS: Glucose - Point of Care 140 mg/dl (70-99)
[2024-02-07] MEDS: LOVENOX 40 MG SC (17:31)
[2024-02-07] MEDS: ZYLOPRIM 300 MG PO (17:31)
[2024-02-07] MEDS: TYLENOL 650 MG PO (19:48)
[2024-02-07] MEDS: PRAVACHOL 40 MG PO (21:27)
[2024-02-07] MEDS: ZYRTEC 10 MG PO (21:27)
[2024-02-07 21:32] LABS: Glucose - Point of Care 169 mg/dl (70-99)
[2024-02-07] MEDS: TESSALON PERLES 100 MG PO (22:30)
[2024-02-07 22:55] VITALS: BP 155/89
[2024-02-08] MEDS: VENTOLIN NEBULES 2.5 MG INH ×2 (05:45→11:43)
[2024-02-08] MEDS: TESSALON PERLES 100 MG PO ×2 (06:16→22:14)
[2024-02-08 07:00] VITALS: BP 147/97
[2024-02-08 07:04] LABS: Glucose - Point of Care 126 mg/dl (70-99)
[2024-02-08] MEDS: MUCINEX 1200 MG PO ×2 (07:41→21:02)
[2024-02-08] MEDS: DELTASONE 50 MG PO (07:41)
[2024-02-08] MEDS: ZITHROMAX 250 MG PO (07:41)
[2024-02-08] MEDS: THERAGRAN 1 TABLET PO (07:42)
[2024-02-08] MEDS: VITAMIN D3 (cholecalciferol) 25 MCG PO (07:42)
[2024-02-08] MEDS: SYMBICORT 160/4.5 MCG INHALER 2 PUFF INH ×2 (07:52→20:29)
[2024-02-08] MEDS: SPIRIVA RESPIMAT 2.5 MCG 2 PUFF INH (07:52)
[2024-02-08] MEDS: VENTOLIN NEBULES INH (07:53)
--- NOTE | 2024-02-08 11:31 | CM ---
Chart reviewed patient is doing well with physical therapy, ambulating 165 feet without assisted device, patient is concerned regarding her breathing, home oxygen test was completed and patient will need 3 liters of oxygen with exertion, case
machining manager faxed initial referral to [facility], patient would also benefit from visiting nurses and options reviewed with patient and patient has selected [facility], [facility] liaison contacted.
Plan; Home with spouse, [facility] and home oxygen from [facility].
[2024-02-08] MEDS: ROCEPHIN 1000 MG IV (11:59)
[2024-02-08] MEDS: STERILE WATER FOR INJECTION 10 ML IV (11:59)
[2024-02-08 12:03] LABS: Glucose - Point of Care 121 mg/dl (70-99)
--- NOTE | 2024-02-08 12:25 | W.PN.HOSP.TC ---
Today's Communication/Plan
-
see plan
Assessment / Plan
Assessment / Plan
CHEST CT
IMPRESSION:
1. No evidence of pulmonary embolism.
2. No significant acute abnormality identified in the chest, as described above.
3. Heterogeneous thyroid gland with underlying nodules. Consider outpatient workup with dedicated thyroid ultrasound if not previously performed.
Acute chronic obstructive pulmonary disease exacerbation likely--suspect due to mild/early pneumonia versus allergy triggers--patient did not improve on low-dose oral prednisone-
-admitted to medicine
-appreciate pulmonary
-continue Rocephin and oral Zithromax (day 4/5)
-transitioned to prednisone
-continue nebs; will change to levalbuterol given tremors
-will eventually DC on oxygen
-continue pulm toilet
-acapella
Abnl Thyroid on imaging
-needs outpatient US
Hyperglycemia on steroids
-add on A1c
-ISS while inpatient on steroids
Mild to moderate aortic stenosis--patient due to see Dr. Oh in February--
-PER ECHO: essentially stable
aortic valve stenosis with prior study demonstrating peak and mean gradients of
24 and 15 mmHg and calculated aortic valve area of 1.3 cm2
Hyperlipidemia--continue pravastatin
Gout--continue allopurinol
Allergies--continue Zyrtec
Chronic left bundle branch block
DVT prophylaxis Lovenox subQ
CODE STATUS--full code
Anticipated Discharge: 24 - 48 hours
Subjective/Interval History
-
Date of Service: February 08, 2024
didn't try CPAP last night
continues to feel short of breath
Objective Data
-
Vital Signs:
Vital Signs
Temp Pulse Resp BP Pulse Ox
97.8 F 92 18 147/97 94
02/08/24 07:00 02/08/24 11:52 02/08/24 11:52 02/08/24 07:00 02/08/24 11:52
I&O
02/07/24 02/08/24 02/09/24
06:59 06:59 06:59
Intake Total 900 / 900 840 / 840
Balance 900 / 900 840 / 840
Review of Systems
-
History Source: Patient
All other systems: Reviewed and negative
Physical Exam
-
General: No Apparent Distress and Obese
HEENT: PERRLA
Respiratory: Decreased Breath Sounds
Cardiac: Regular Rhythm and S1/S2
GI: Soft and Nontender
Musculoskeletal: No Edema
Skin: Warm and Dry; Negative Rash
Neuro: AO x 3
Psych: Calm
Data Reviewed
-
Diagnostic Radiology: Report Reviewed by me
Labs: Labs Reviewed by me
[2024-02-08] MEDS: XOPENEX 1.25 MG INHALANT SOLUTION INH ×2 (12:42→20:29)
--- NOTE | 2024-02-08 13:43 | VNURNOTE ---
Home Health Liaison met with patient at 1215 to discuss [facility] nurse/therapy, visits, schedule and homebound status. Patient is agreeable and understands that visits at home will be 2-3 x per week to assess and teach medical management.
[facility] contact information provided. Patient is aware that [facility] will contact her for start of care in 1-2 days after discharge from .
[facility] referral completed in [facility].
Patient may need home O2, already has portable oxygen concentrator in her room.
[facility] will need an updated test, notes and order form for home oxygen closer to discharge.
[2024-02-08 14:43] VITALS: O2SAT 97
[2024-02-08 15:00] VITALS: BP 162/89
[2024-02-08 16:41] LABS: Glucose - Point of Care 126 mg/dl (70-99)
[2024-02-08] MEDS: LOVENOX 40 MG SC (17:37)
[2024-02-08] MEDS: ZYLOPRIM 300 MG PO (17:37)
[2024-02-08] MEDS: ZYRTEC 10 MG PO (21:02)
[2024-02-08] MEDS: PRAVACHOL 40 MG PO (21:02)
[2024-02-08 23:00] VITALS: BP 170/94
[2024-02-09 00:41] VITALS: BP 160/86
[2024-02-09 03:00] LABS: Glucose - Point of Care 121 mg/dl (70-99)
[2024-02-09 06:56] LABS: Glucose - Point of Care 106 mg/dl (70-99)
[2024-02-09 07:15] VITALS: BP 173/95
[2024-02-09] MEDS: DELTASONE 50 MG PO (07:19)
[2024-02-09] MEDS: ZITHROMAX 250 MG PO (07:19)
[2024-02-09] MEDS: VITAMIN D3 (cholecalciferol) 25 MCG PO (07:19)
[2024-02-09] MEDS: THERAGRAN 1 TABLET PO (07:19)
[2024-02-09] MEDS: MUCINEX 1200 MG PO ×2 (07:19→22:08)
[2024-02-09] MEDS: XOPENEX 1.25 MG INHALANT SOLUTION INH ×3 (08:07→20:48)
[2024-02-09] MEDS: SPIRIVA RESPIMAT 2.5 MCG 2 PUFF INH (08:07)
[2024-02-09] MEDS: SYMBICORT 160/4.5 MCG INHALER 2 PUFF INH ×2 (08:07→20:48)
--- NOTE | 2024-02-09 11:38 | CM ---
Patient to return to home with [facility] and home oxygen from [facility]. Referral sent to DME company however [facility] will need updated testing and script completed, along with physician documentation on chart before they can have
oxygen approved.
Plan; Home with [facility] and home oxygen from [facility].
[2024-02-09] MEDS: STERILE WATER FOR INJECTION 10 ML IV (11:51)
[2024-02-09] MEDS: ROCEPHIN 1000 MG IV (11:51)
[2024-02-09 11:53] LABS: Glucose - Point of Care 139 mg/dl (70-99)
--- NOTE | 2024-02-09 12:29 | W.PN.PUL3 ---
Today's Communication / Plan
-
I have repeated testing on her today including CXR and procal which are negative
proBNP and 6MWT are pending
ABG showing adequate paO2 on room air
Repeat home O2 eval ongoing
If all repeat testing again is negative, I have discussed with her need for discharge and continued rehab
She states her mental health has been her biggest issue, admits to anxiety/panic attacks/crying
Recommend psych eval
Otherwise pending tests, can still assess for home discharge
Assessment
-
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 Se had been improving on her taper and suddenly developed acute onset SOB when lying down that was recurrent. She felt her throat was closing. She is not known to be on home O2,
placed on this. CXR showing possible R basilar disease. We are consulted for eval.
Acute hypoxic respiratory failure
Acute onset SOB
Possible PNA
AE COPD suspected
Conditions present [employer]
Gout
Hypercholesteremia
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
Fibromyalgia
Asthma/COPD
Follows with michelle RIZVI
PFT with severe airflow obstruction/Severe diffusion impairment
Tonsillectomy
Laparotomy with BTL
Breast bx - benign
LPS Cholecystectomy - 2003
RT Arthroscopy knee
Knee replacement - bilateral
Bi-lateral cataract - removal/lens implants 2021
History of PNA, Hosp @ [facility] 2003
ER DH: Back pain 04/28/2023
Former smoker, quit smoking in 1992. 89-hzmo-[id number] history noted.
Morbid obesity BMI 42
Plan
We are asked to re-eval patient 02/09/24
Repeat CXR, procal resent today all negative, repeat proBNP pending
ABG showing paO2 on room air 65
6MWT obtained as well to perform
I have reviewed with her that if all testing again is negative she can be discharged home for further care
She notes that anxiety is her largest issue here, 'cries at the drop of a hat'
I would agree, recommend psych eval
She is placed on 3L O2 on admission, currently weaned to 2L satting 93%
No oxygen was needed at home, no history of home use
Home O2 eval--3L needed with exertion/arrange home O2 set up
Prior history of lung disease is noted including ACOS
Recent outpatient records indicating PFT on 01/30/24 showing severe obstruction.
She had had chronic SOB felt to be related to her BMI/deconditioning. She is on Breztri inhaler.
She has a history of severe AIDEN with AHI 80 diagnosed >10 years ago and could not tolerate CPAP.
Suspect patient has underlying AECOPD, possible PNA
IV steroids, will transition to PO taper
CXR obtained indicating bibasilar haziness, no comparative CXR in past
Other imaging reviewed--CT AP clear bases in 2022
CT PE study neg
ECHO results reviewed in past
proBNP neg on arrival
Trend trops/follow telemetry
AIDEN-severe
We discussed this and her history of noncompliance
Obtain baseline ABG--this was adequate
CPAP trials ongoing, we discussed retesting as OP for new set up
Will need outpatient pulmonary evaluation in our office for PFTs and 6MWT
Reviewed with patient
Risk factors assessed for underlying sleep disordered breathing also noted, recommend outpatient PSG/sleep evaluation
She would be a good candidate for pulmonary rehab
Weight loss measures recommended
Obesity contributing to respiratory symptoms
Discharge planning per team
She does not wish to leave despite my suggestions of further OP management--she is fearful of going home
Can obtain PT eval for SNF Eval
Diagnostic Data
CXR 02/05/24:
1. Mild interstitial prominence and cephalization of the pulmonary vasculature, suggestive of mild pulmonary edema. Mild cardiac enlargement.
2. Haziness of each hemidiaphragm, left greater than right. Findings may represent small pleural effusions and/or bibasilar airspace disease.
CT AP 04/28/23- lung bases clear/very mild chronic interstitial changes
ECHO 01/16/23: Normal left ventricular chamber size. Normal left ventricular systolic function. Normal regional wall motion. Mild concentric left ventricular hypertrophy. Left ventricular ejection fraction is 60-65%. Mild to moderate aortic stenosis
with peak/mean gradients across the aortic valve are 24/15mmHg. aortic valve area 1.3cm2. No prior study available for comparison.
Spirometry 01/30/24: FEV1 1.03L 40%, FVC 1.82L 64%, ratio 56
Total time spent on this includes review of prior visits, outpatient records/testing.
Subjective Data
-
Date of Service:
Date of Service: February 09, 2024
Chief Complaint: Pulmonary Follow Up
Subjective:
asked to re-eval re: SOB
she has not made progress with her complaints
still remains sedentary
fearful of going home
Objective Data
Data Reviewed
Vital Signs / I&O / Oxygen:
Vital Signs
Temp Pulse Resp BP Pulse Ox
99.3 F 107 18 173/95 92
02/09/24 07:15 02/09/24 08:08 02/09/24 08:08 02/09/24 07:15 02/09/24 11:12
Intake and Output
02/08/24 02/09/24 02/10/24
06:59 06:59 06:59
Intake Total 840 / 840 780 / 780
Balance 840 / 840 780 / 780
SaO2 92
Nasal Cannula flow liters per 2
minute
Physical Exam
General: Comfortable and Other (NAD)
HEENT: Normocephalic, Anicteric and Moist Mucous Membranes
Cardiovascular: S1-S2 and Regular Rhythm
Respiratory: Clear, Non-Labored Respirations and Other (decreased overall BS)
GI: Soft, Non Distended and Non Tender
Neurology: Awake, Alert, Oriented, AO x 3 and No Motor Deficits
Skin: Warm, Dry and Good Color
Labs/Micro/Reports
Lab Data
02/06/24 07:31
[2024-02-09 12:49] LABS: Blood Urea Nitrogen 32 mg/dl (7-17); Calcium 9.9 mg/dl (8.4-10.2); Carbon Dioxide 30 mmol/L (22-30); Chloride 103 mmol/L (98-107); Estimated Creatinine Clearance 88 ml/min; Glucose 146 mg/dl (70-99); Potassium 4.7 mmol/L (3.5-5.1); Sodium 141 mmol/L (135-145); eGFR > 60.00
--- NOTE | 2024-02-09 12:51 | W.PN.HOSP.TC ---
Addendum entered and electronically signed by Marlee Obando MD 02/10/24 12:23:
Patient is in need of oxygen on exertion due to pulse oximetry of 92% on room air at rest; 87% on room air with exertion.
Patient was placed on 2L O2 via nasal cannula with saturation of 93%. Oxygen will help to improve hypoxemia.
Patient is mobile within the home. Albuterol therapy has been discussed and is ineffective in treating hypoxemia-related symptoms.
Oxygen will improve the patient's symptoms.
Original Note:
Today's Communication/Plan
-
steroids, nebs
trial of lasix
appreciate pulmonary
Assessment / Plan
Assessment / Plan
CHEST CT
IMPRESSION:
1. No evidence of pulmonary embolism.
2. No significant acute abnormality identified in the chest, as described above.
3. Heterogeneous thyroid gland with underlying nodules. Consider outpatient workup with dedicated thyroid ultrasound if not previously performed.
Acute chronic obstructive pulmonary disease exacerbation likely--suspect due to mild/early pneumonia versus allergy triggers--patient did not improve on low-dose oral prednisone-
-admitted to medicine
-appreciate pulmonary
-continue Rocephin and oral Zithromax (day 5/5)
-transitioned to prednisone
-continue nebs; will change to levalbuterol given tremors
-will eventually DC on oxygen
-continue pulm toilet
-acapella
-appreciate pulm
Abnl Thyroid on imaging
-needs outpatient US
Hyperglycemia on steroids
-add on A1c
-ISS while inpatient on steroids
Mild to moderate aortic stenosis--patient due to see Dr. Oh in February--
-PER ECHO: essentially stable
aortic valve stenosis with prior study demonstrating peak and mean gradients of
24 and 15 mmHg and calculated aortic valve area of 1.3 cm2
-will trial a dose of lasix today
Hyperlipidemia--continue pravastatin
Gout--continue allopurinol
Allergies--continue Zyrtec
Chronic left bundle branch block
DVT prophylaxis Lovenox subQ
CODE STATUS--full code
Anticipated Discharge: > 48 hours
Subjective/Interval History
-
Date of Service: February 09, 2024
continues to feel very short of breath
had a tough night, couldn't sleep
Objective Data
-
Labs:
Laboratory Results
02/09/24
12:12
HCO3 Pending
Sodium 141
Potassium 4.7
Chloride 103
Carbon Dioxide 30
BUN 32 H
Creatinine 0.7
Glucose 146 H
Calcium 9.9
Vital Signs:
Vital Signs
Temp Pulse Resp BP Pulse Ox
99.3 F 107 18 173/95 92
02/09/24 07:15 02/09/24 08:08 02/09/24 08:08 02/09/24 07:15 02/09/24 11:12
I&O
02/08/24 02/09/24 02/10/24
06:59 06:59 06:59
Intake Total 840 / 840 780 / 780
Balance 840 / 840 780 / 780
Review of Systems
-
History Source: Patient
All other systems: Reviewed and negative
Physical Exam
-
General: No Apparent Distress and Obese
HEENT: PERRLA
Respiratory: Decreased Breath Sounds
Cardiac: Regular Rhythm and S1/S2
GI: Soft and Nontender
Musculoskeletal: No Edema
Skin: Warm and Dry; Negative Rash
Neuro: AO x 3
Psych: Calm
Data Reviewed
-
Diagnostic Radiology: Report Reviewed by me
Labs: Labs Reviewed by me
[2024-02-09 13:27] LABS: Procalcitonin < 0.05 ng/ml (0.0-0.25)
[2024-02-09 14:05] LABS: B.E. 3.7 mmol/L; HCO3 26.1 mmol/L (21-28); O2 Saturation % 95.6 % (94-98); PCO2 32 mmHg (32-35); PO2 65 mmHg (83-108); pH 7.52 (7.35-7.45)
[2024-02-09 15:00] VITALS: BP 142/82
[2024-02-09] MEDS: LASIX 20 MG IV (15:38)
[2024-02-09 16:32] LABS: NT-proBNP 184 pg/ml
[2024-02-09 16:48] LABS: Glucose - Point of Care 129 mg/dl (70-99)
[2024-02-09] MEDS: LOVENOX 40 MG SC (17:08)
[2024-02-09] MEDS: ZYLOPRIM 300 MG PO (17:08)
[2024-02-09 20:51] LABS: Glucose - Point of Care 141 mg/dl (70-99)
[2024-02-09] MEDS: TESSALON PERLES 100 MG PO (22:08)
[2024-02-09] MEDS: PRAVACHOL 40 MG PO (22:08)
[2024-02-09] MEDS: ZYRTEC 10 MG PO (22:08)
[2024-02-09 23:25] VITALS: BP 175/105
[2024-02-10 00:56] VITALS: BP 157/92
[2024-02-10 05:59] LABS: Blood Urea Nitrogen 37 mg/dl (7-17); Calcium 9.2 mg/dl (8.4-10.2); Carbon Dioxide 29 mmol/L (22-30); Chloride 106 mmol/L (98-107); Estimated Creatinine Clearance 103 ml/min; Glucose 118 mg/dl (70-99); Potassium 3.7 mmol/L (3.5-5.1); Sodium 142 mmol/L (135-145); eGFR > 60.00
[2024-02-10 07:00] VITALS: BP 151/85
[2024-02-10] MEDS: MUCINEX 1200 MG PO ×2 (08:01→20:42)
[2024-02-10] MEDS: THERAGRAN 1 TABLET PO (08:02)
[2024-02-10] MEDS: VITAMIN D3 (cholecalciferol) 25 MCG PO (08:02)
[2024-02-10] MEDS: DELTASONE 50 MG PO (08:10)
[2024-02-10] MEDS: ZITHROMAX 250 MG PO (08:10)
[2024-02-10] MEDS: XOPENEX 1.25 MG INHALANT SOLUTION INH ×3 (08:10→15:32)
[2024-02-10 08:11] LABS: Glucose - Point of Care 107 mg/dl (70-99)
[2024-02-10] MEDS: SPIRIVA RESPIMAT 2.5 MCG 2 PUFF INH (08:11)
[2024-02-10] MEDS: SYMBICORT 160/4.5 MCG INHALER 2 PUFF INH ×2 (08:11→15:32)
[2024-02-10] MEDS: STERILE WATER FOR INJECTION 10 ML IV (10:27)
[2024-02-10] MEDS: ROCEPHIN 1000 MG IV (10:27)
[2024-02-10 11:22] LABS: Glucose - Point of Care 156 mg/dl (70-99)
--- NOTE | 2024-02-10 12:33 | W.PN.HOSP.TC ---
Today's Communication/Plan
-
Thyroid US today given outpatient transport may be difficult
continue prednisone, nebs
likely DC tomorrow on home oxygen
Assessment / Plan
Assessment / Plan
CHEST CT
IMPRESSION:
1. No evidence of pulmonary embolism.
2. No significant acute abnormality identified in the chest, as described above.
3. Heterogeneous thyroid gland with underlying nodules. Consider outpatient workup with dedicated thyroid ultrasound if not previously performed.
Acute chronic obstructive pulmonary disease exacerbation likely--suspect due to mild/early pneumonia versus allergy triggers--patient did not improve on low-dose oral prednisone
outpatient PFT with severe airflow obstruction/Severe diffusion impairment
-admitted to medicine
-appreciate pulmonary
-s/p Rocephin and oral Zithromax (day 5/5)
-transitioned to prednisone
-continue nebs; will change to levalbuterol given tremors
-will eventually DC on oxygen
-continue pulm toilet
-acapella
-appreciate pulm
Abnl Thyroid on imaging
-will order US while patient in-house given need for O2 and difficult transporting
Severe AIDEN
-has not tolerated CPAP - will follow up outpatient with pulm and plan to repeat sleep study for appropriate mask fitting
Hyperglycemia on steroids
-add on A1c
-ISS while inpatient on steroids
Mild to moderate aortic stenosis--patient due to see Dr. Oh in February--
-PER ECHO: essentially stable
aortic valve stenosis with prior study demonstrating peak and mean gradients of
24 and 15 mmHg and calculated aortic valve area of 1.3 cm2
-s/p lasix without significant effect - avoid further
Hyperlipidemia--continue pravastatin
Gout--continue allopurinol
Allergies--continue Zyrtec
Chronic left bundle branch block
DVT prophylaxis Lovenox subQ
CODE STATUS--full code
Anticipated Discharge: 24 - 48 hours
Subjective/Interval History
-
Date of Service: February 10, 2024
slept better last night
thinks she'll be ready to go home today
Objective Data
-
Labs:
Laboratory Results
02/10/24
05:28
Sodium 142
Potassium 3.7
Chloride 106
Carbon Dioxide 29
BUN 37 H
Creatinine 0.6
Glucose 118 H
Calcium 9.2
Vital Signs:
Vital Signs
Temp Pulse Resp BP Pulse Ox
98.7 F 99 18 151/85 88
02/10/24 07:00 02/10/24 11:46 02/10/24 11:46 02/10/24 07:00 02/10/24 08:17
I&O
02/09/24 02/10/24 02/11/24
06:59 06:59 06:59
Intake Total 780 / 780 1080 / 1080 180 / 180
Balance 780 / 780 1080 / 1080 180 / 180
Review of Systems
-
History Source: Patient
All other systems: Reviewed and negative
Physical Exam
-
General: No Apparent Distress and Obese
HEENT: PERRLA
Respiratory: Decreased Breath Sounds
Cardiac: Regular Rhythm and S1/S2
GI: Soft and Nontender
Musculoskeletal: No Edema
Skin: Warm and Dry; Negative Rash
Neuro: AO x 3
Psych: Calm
Data Reviewed
-
Diagnostic Radiology: Report Reviewed by me
Labs: Labs Reviewed by me
--- NOTE | 2024-02-10 12:56 | CM ---
Patient seen bedside with spouse.
Patient for a tentative d/c home tomorrow.
Oxygen-[employer] delivered to room.
Additional information faxed to [employer].
Patient to be d/c home with [facility], spouse will transport.
Plan: home with [facility]
[2024-02-10 13:05] LABS: Glucose - Point of Care 141 mg/dl (70-99)
[2024-02-10 15:34] VITALS: BP 127/80
[2024-02-10 17:41] LABS: Glucose - Point of Care 125 mg/dl (70-99)
[2024-02-10] MEDS: LOVENOX 40 MG SC (17:53)
[2024-02-10] MEDS: ZYLOPRIM 300 MG PO (17:54)
[2024-02-10] MEDS: ZYRTEC 10 MG PO (20:42)
[2024-02-10] MEDS: PRAVACHOL 40 MG PO (20:42)
[2024-02-10 21:30] LABS: Glucose - Point of Care 134 mg/dl (70-99)
[2024-02-10 23:05] VITALS: BP 155/87
[2024-02-11 07:19] VITALS: BP 128/76
[2024-02-11] MEDS: XOPENEX 1.25 MG INHALANT SOLUTION INH ×3 (08:05→15:23)
[2024-02-11] MEDS: SYMBICORT 160/4.5 MCG INHALER 2 PUFF INH ×2 (08:05→15:23)
[2024-02-11] MEDS: SPIRIVA RESPIMAT 2.5 MCG 2 PUFF INH (08:05)
[2024-02-11 08:26] LABS: Glucose - Point of Care 92 mg/dl (70-99)
[2024-02-11] MEDS: MUCINEX 1200 MG PO (08:26)
[2024-02-11] MEDS: DELTASONE 50 MG PO (08:27)
[2024-02-11] MEDS: ZITHROMAX 250 MG PO (08:28)
[2024-02-11] MEDS: VITAMIN D3 (cholecalciferol) 25 MCG PO (08:28)
[2024-02-11] MEDS: THERAGRAN 1 TABLET PO (08:28)
[2024-02-11] MEDS: ROCEPHIN 1000 MG IV (10:32)
[2024-02-11] MEDS: STERILE WATER FOR INJECTION 10 ML IV (10:32)
[2024-02-11 11:32] LABS: Glucose - Point of Care 148 mg/dl (70-99)
--- NOTE | 2024-02-11 12:27 | W.DS.TRANS ---
DC Summary - [place]
-
Discharge Instructions:
Discharge Diagnosis/Procedures chronic obstructive pulmonary disease acute
exacerbation; severe obstructive sleep apnea
Diet Low Cholesterol
Activity As tolerated
Driving Restrictions As prior to admission
Bathing Restrictions None
Others Tests thyroid ultrasound to be ordered by your PCP
Other Services VN,PT,OT
Instructions:
Stand-Alone Forms:
Changes to Home Medications: Yes
Discharge Medications:
DC Medications w/original date entered in [employer]
albuterol sulfate 90 mcg/actuation aerosol inhaler (ProAir HFA) 2 puff inhalation R Q6HPRN PRN SOB 02/05/24
allopurinol 300 mg tablet 300 mg PO QPM Gout 02/05/24
biotin 5 mg tablet 5 mg PO DAILY Supplement 02/05/24
budesonide 160 mcg-glycopyr 9 mcg-formot 4.8 mcg/actuation HFA inhaler (Breztri Aerosphere) 2 inh inhalation R BID Lung/Breathing Issues 02/05/24
cetirizine 10 mg tablet (Zyrtec) 10 mg PO HS Allergies 02/05/24
cholecalciferol (vitamin D3) 25 mcg (1,000 unit) tablet (Vitamin D3) 25 mcg PO DAILY Supplement 02/05/24
famotidine 20 mg tablet (Pepcid) 20 mg PO DAILYPRN PRN GERD 02/05/24
pravastatin 40 mg tablet 40 mg PO HS High Cholesterol 02/05/24
therapeutic multivitamin 1 tab PO DAILY Supplement 02/05/24
benzonatate 100 mg capsule 100 mg PO TIDPRN PRN cough #30 caps 02/11/24
guaifenesin 600 mg tablet, extended release 12 hr 1,200 mg (2 x 600 mg) PO Q12 #30 tabs 02/11/24
prednisone 10 mg tablet 10 mg PO DIRECTED #30 tabs 02/11/24
Home Medication Changes
addition of prednisone taper, mucinex and tessalon pearles
Pending Results: No
--- NOTE | 2024-02-11 12:28 | W.PN.HOSP.TC ---
Today's Communication/Plan
-
OK for DC today
Assessment / Plan
Assessment / Plan
CHEST CT
IMPRESSION:
1. No evidence of pulmonary embolism.
2. No significant acute abnormality identified in the chest, as described above.
3. Heterogeneous thyroid gland with underlying nodules. Consider outpatient workup with dedicated thyroid ultrasound if not previously performed.
Acute chronic obstructive pulmonary disease exacerbation likely--suspect due to mild/early pneumonia versus allergy triggers--patient did not improve on low-dose oral prednisone
outpatient PFT with severe airflow obstruction/Severe diffusion impairment
-admitted to medicine
-appreciate pulmonary
-s/p Rocephin and oral Zithromax
-transitioned to prednisone --> OK to DC on taper
-continue nebs;
-DC on O2
-continue pulm toilet
-acapella
-appreciate pulm --> pulm follow up
Abnl Thyroid on imaging
patient aware needs thyroid US as outpatient
Severe AIDEN
-has not tolerated CPAP - will follow up outpatient with pulm and plan to repeat sleep study for appropriate mask fitting
Hyperglycemia on steroids
-add on A1c
-ISS while inpatient on steroids
Mild to moderate aortic stenosis--patient due to see Dr. Oh in February--
-PER ECHO: essentially stable
aortic valve stenosis with prior study demonstrating peak and mean gradients of
24 and 15 mmHg and calculated aortic valve area of 1.3 cm2
-s/p lasix without significant effect - avoid further
Hyperlipidemia--continue pravastatin
Gout--continue allopurinol
Allergies--continue Zyrtec
Chronic left bundle branch block
DVT prophylaxis Lovenox subQ
CODE STATUS--full code
Anticipated Discharge: Today
Subjective/Interval History
-
Date of Service: February 11, 2024
slept well
nervous to go home
breathing stable
Objective Data
-
Vital Signs:
Vital Signs
Temp Pulse Resp BP Pulse Ox
98.4 F 90 18 128/76 94
02/11/24 07:19 02/11/24 08:13 02/11/24 08:13 02/11/24 07:19 02/11/24 08:13
I&O
02/10/24 02/11/24 02/12/24
06:59 06:59 06:59
Intake Total 1080 / 1080 985 / 985 180 / 180
Balance 1080 / 1080 985 / 985 180 / 180
Review of Systems
-
History Source: Patient
All other systems: Reviewed and negative
Physical Exam
-
General: No Apparent Distress and Obese
HEENT: PERRLA
Respiratory: Decreased Breath Sounds
Cardiac: Regular Rhythm and S1/S2
GI: Soft and Nontender
Musculoskeletal: No Edema
Skin: Warm and Dry; Negative Rash
Neuro: AO x 3
Psych: Calm
Data Reviewed
-
Diagnostic Radiology: Report Reviewed by me
Labs: Labs Reviewed by me
--- NOTE | 2024-02-11 12:34 | CM ---
Patient for d/c home today.
Patient has [employer] portable oxygen tank in room.
Patient instructed to call [facility] on d/c to have concentrator delivered this evening.
[facility] updated.
Patient very nervous re d/c and being home on oxygen. Emotional support provided.
IMM completed and added to chart.
Plan: d/c home with home oxygen thru [facility] and VN.
--- NOTE | 2024-02-11 14:12 | W.DCSUMMARY ---
Discharge Summary
Discharge Data
Date of Admission: 02/05/24
Date of Discharge: 02/11/24
-
Pending Results: Yes
Additional Pending Results:
thyroid US results (still needs to be read)
Hospital Course
Discharging Physician : Dr. Marlee Obando
Disposition : Home with Home Health
Primary care physician : Dr. Saleem Hillman
Principal Discharge diagnosis : Chronic Obstructive Pulmonary Disease, Acute Exacerbation; severe obstructive sleep apnea
Hospital Course :
Ms. Ruth Ray is a 79 yo woman with hx COPD/asthma, mild to moderate who presents to the ER with cough, shortness of breath not responsive to outpatient oral steroids. Triage vitals significant for tachycardia and tachypnea. CXR with
possible pneumonia, mild pulmonary edema. Chest CT without e/o PE, no acute abnormality, heterogeneous thyroid gland.
Patient was admitted to medicine with Pulmonary consulting for acute COPD exacerbation. Per outpatient records, PFT from 01/30/24 show severe obstruction. She has history severe AIDEN with AHI 80 diagnosed over 10 years ago. Patient couldn't tolerate
CPAP. She was given IV steroids and a course of antibiotics. Patient's oxygenation improved, no wheezing. TTE unchanged and trial of diuresis did not help breathing. She was transitioned to oral prednisone and discharged on a taper.
Patient remains anxious about discharge and completing pulmonary rehab. She was educated on importance of re-establishing herself with AIDEN program and finding the right mask for treatment for severe AIDEN.
She is discharged with home oxygen.
Thyroid US completed prior to discharge, not yet read. Results to be follow up at discharge.
Time spent on discharge was 35 minutes.
Important imaging findings :
CXR 02/04
IMPRESSION:
1. Mild interstitial prominence and cephalization of the pulmonary vasculature, suggestive of mild pulmonary edema. Mild cardiac enlargement.
2. Haziness of each hemidiaphragm, left greater than right. Findings may represent small pleural effusions and/or bibasilar airspace disease.
CHEST CT 02/04
IMPRESSION:
1. No evidence of pulmonary embolism.
2. No significant acute abnormality identified in the chest, as described above.
3. Heterogeneous thyroid gland with underlying nodules. Consider outpatient workup with dedicated thyroid ultrasound if not previously performed.
TTE 02/05/24
CONCLUSIONS
Normal left ventricular chamber size. Mild concentric left ventricular
hypertrophy. Normal left ventricular systolic function. Normal regional wall
motion. LV ejection fraction is 50-55% by Floyd's method of discs.
Difficult endocardial definition, possibly mildly enlarged right ventricular
size. With normal RV function.
Mild aortic stenosis. Peak/mean gradients across the aortic valve are 32/16
mmHg. Using an LVOT diameter of 2.1 cm, the aortic valve by the Continuity
equation is calculated at 1.6 cm2. Trace aortic regurgitation.
Trivial pericardial effusion.
Compared to prior echocardiogram from January 16, 2023 there is now top normal
size right ventricle without pulmonary hypertension and essentially stable
aortic valve stenosis with prior study demonstrating peak and mean gradients of
24 and 15 mmHg and calculated aortic valve area of 1.3 cm2. There is now
trivial pericardial effusion.
Indications:
SOB
Procedure findings :
Discharge Plan
-
Patient Disposition: Home with Home Care
Discharge Diagnosis/Procedures: chronic obstructive pulmonary disease acute exacerbation; severe obstructive sleep apnea
Diet: Low Cholesterol
Activity: As tolerated
Driving Restrictions: As prior to admission
Bathing Restrictions: None
Other Services: VN, PT and OT
Referrals:
John Moody MD [Active] - (3-4 weeks, PFTs)
Saleem Hillman MD [Family Provider] - in less than 1 week
Additional Discharge Medication Instructions: Follow prednisone taper as prescribed:
40mg (4 tabs) x 3 days; 30mg (3 tabs) x 3 days; 20mg (2 tabs) x 3 days; 10mg (1 tab) x 3 days then stop
Prescriptions:
New
benzonatate 100 mg Capsule
100 mg PO TIDPRN PRN (Reason: cough) Qty: 30 0RF
guaifenesin 600 mg Tablet Extended Release 12hr
1,200 mg PO Q12 Qty: 30 0RF
prednisone 10 mg tablet
10 mg PO DIRECTED Qty: 30 0RF
Rx Instructions:
Take 40mg x 3 days; 30mg x 3 days; 20mg x 3 days; 10mg x 3 days then stop
Continued
famotidine [Pepcid] 20 mg Tablet
20 mg PO DAILYPRN PRN (Reason: GERD)
albuterol sulfate [ProAir HFA] 90 mcg/actuation Hfa Aerosol Inhaler
2 puff INHALATION R Q6HPRN PRN (Reason: SOB)
Breztri Aerosphere 160-9-4.8 mcg/actuation Hfa Aerosol Inhaler
2 inh INHALATION R BID
cetirizine [Zyrtec] 10 mg Tablet
10 mg PO HS
pravastatin 40 mg Tablet
40 mg PO HS
therapeutic multivitamin Tablet
1 tab PO DAILY
allopurinol 300 mg Tablet
300 mg PO QPM
cholecalciferol (vitamin D3) [Vitamin D3] 25 mcg (1,000 unit) Tablet
25 mcg PO DAILY
biotin 5 mg Tablet
5 mg PO DAILY
Discontinued
prednisone 10 mg Tablet
20 mg PO DIRECTED
Rx Instructions:
TAKE 20MG DAILY FOR 7 DAY THEN 10MG DAILY FOR 7 DAYS
Discharge Orders:
Discharge Patient (As Directed); Ordered 02/11/24
Ordered By: Marlee Obando
Discharge Date and Time
Print Language: [id number]
[2024-02-11 16:34] VITALS: BP 146/76
== END 2024-02-11 17:40 | disposition home health service (06) | DRG 871 ==
LOC: 4 WEST ACU 11:46
PROVIDERS: Physician Assistant; ADMITTING PHYSICIAN Internal Medicine; ATTENDING PHYSICIAN Student in an Organized Health Care Education/Training Program; EMERGENCY PHYSICIAN Emergency Medicine; FAMILY PHYSICIAN Internal Medicine; OTHER PHYSICIAN Internal Medicine; REFERRING PHYSICIAN Podiatrist Foot Surgery
PROC: 5A09357 Assistance with Respiratory Ventilation, Less than 24 Consecutive Hours, Continuous Positive Airway Pressure (ICD-10-PCS; 2024-02-07)
DX: A41.9 Sepsis, unspecified organism (principal); J18.9 Pneumonia, unspecified organism; J96.01 Acute respiratory failure with hypoxia; J44.1 Chronic obstructive pulmonary disease with (acute) exacerbation; I45.2 Bifascicular block; Z68.41 Body mass index [BMI] 40.0-44.9, adult; J44.0 Chronic obstructive pulmonary disease with (acute) lower respiratory infection; E66.01 Morbid (severe) obesity due to excess calories; M10.9 Gout, unspecified; G47.33 Obstructive sleep apnea (adult) (pediatric); M79.7 Fibromyalgia; E78.00 Pure hypercholesterolemia, unspecified; J40 Bronchitis, not specified as acute or chronic; F41.0 Panic disorder [episodic paroxysmal anxiety]; R73.9 Hyperglycemia, unspecified; T38.0X5A Adverse effect of glucocorticoids and synthetic analogues, initial encounter; Y92.9 Unspecified place or not applicable; I35.0 Nonrheumatic aortic (valve) stenosis; I25.10 Atherosclerotic heart disease of native coronary artery without angina pectoris; Z96.653 Presence of artificial knee joint, bilateral; Z87.891 Personal history of nicotine dependence; Z79.51 Long term (current) use of inhaled steroids; Z11.52 Encounter for screening for COVID-19; Z87.01 Personal history of pneumonia (recurrent); Z91.199 Patient's noncompliance with other medical treatment and regimen due to unspecified reason
CPT/HCPCS: 71045; 71275; 76536; 80048; 80053; 82805; 82962; 83036; 83880; 84145; 84484; 85025; 85379; 87205; 87502; 87811; 93005; 93306; 94640; 94660; 96365; 96375; 97162; 97530; 99285; Q9967

== ENCOUNTER → 2024-04-08 12:00 | Outpatient (REF) | payer MEDICARE, OTHER, SELFPAY | LOC: DHSLP 12:00 | PROVIDERS: ATTENDING PHYSICIAN Internal Medicine Critical Care Medicine; FAMILY PHYSICIAN Internal Medicine | DX: G47.33 Obstructive sleep apnea (adult) (pediatric) (principal) | CPT/HCPCS: 95800 ==